=== PATIENT | male | born 1945 | race Caucasian/White ===

== ENCOUNTER 2017-07-24 06:25 | Day surgery (SDC) | payer MEDICARE, BC, OTHER ==
[~2017-07-24] VITALS: Ht 177.8 cm; Wt 97.6 kg
[2017-07-24] MEDS ORDERED: WARF1TAB47 PO (07:10)
[2017-07-24] MEDS ORDERED: LEVO137T26 PO (07:11)
[2017-07-24] MEDS ORDERED: INSU300I SQ (07:11)
[2017-07-24] MEDS ORDERED: LIRA0.6P SQ (07:12)
[2017-07-24] MEDS ORDERED: NOVO3I SC (07:13)
[2017-07-24] MEDS ORDERED: LIOT5TAB3 PO (07:14)
[2017-07-24] MEDS ORDERED: CARV12.579 PO (07:14)
[2017-07-24] MEDS ORDERED: HYDR-3671 PO (07:15)
[2017-07-24] MEDS ORDERED: PITA1TAB PO (07:15)
[2017-07-24] MEDS ORDERED: CALC0.5C4 PO (07:16)
[2017-07-24] MEDS ORDERED: ESCI20TA PO (07:17)
[2017-07-24] MEDS ORDERED: SEVE800T7 PO (07:17)
[2017-07-24] MEDS ORDERED: FEBU40TA PO (07:17)
[2017-07-24 07:18] VITALS: Ht 177.8 cm; Wt 97.6 kg
[2017-07-24 07:19] VITALS: BP 137/65; PULSE 61; RESP 18
[2017-07-24] MEDS ORDERED: TIMO5DRO21 RIGHT EYE (07:19)
[2017-07-24] MEDS ORDERED: FURO80TA3 PO (07:19)
[2017-07-24] MEDS ORDERED: BIMA2.5D RIGHT EYE (07:19)
[2017-07-24] MEDS ORDERED: FOLI1CAP PO (07:20)
[2017-07-24] MEDS ORDERED: CHOL100062 PO (07:20)
[2017-07-24] MEDS ORDERED: LINA145C PO (07:21)
[2017-07-24] MEDS ORDERED: PANT40TA3 PO (07:21)
[2017-07-24] MEDS ORDERED: NPH SQ (07:23)
[2017-07-24 07:38] LABS: BASOPHIL # 0.1 10^3/ul (0.0-0.1); BASOPHILS % 1.2 % (0.0-2.0); EOSINOPHILS % 0.5 % (0.0-7.0); HEMATOCRIT 36.4 % (42.0-52.0); HEMOGLOBIN 11.9 g/dl (14.0-18.0); LYMPHOCYTES # 1.4 10^3/ul (0.8-2.9); LYMPHOCYTES % 17.5 % (15.0-51.0); MEAN CORPUSCULAR HEMOGLOBIN 30.4 pg (29.0-33.0); MEAN CORPUSCULAR HGB CONC 32.7 g/dl (32.0-37.0); MEAN CORPUSCULAR VOLUME 92.9 fl (82.0-101.0); MEAN PLATELET VOLUME 10.7 fl (7.4-10.4); MONOCYTE # 0.9 10^3/ul (0.3-0.9); MONOCYTES % 12.1 % (0.0-11.0); NEUTROPHIL # 5.2 10^3/ul (1.6-7.5); NEUTROPHILS % 66.3 % (39.0-77.0); PLATELET COUNT 109 10^3/UL (140-415); RED BLOOD COUNT 3.92 10^6/ul (4.70-6.10); RED CELL DISTRIBUTION WIDTH 13.9 % (11.5-14.5); WHITE BLOOD COUNT 7.8 10^3/ul (4.8-10.8)
[2017-07-24 07:39] LABS: INR 2.51; PROTIME 27.4 Sec (12.2-14.2); PT RATIO 2.1
[2017-07-24 07:42] LABS: ALBUMIN 3.8 g/dl (3.3-4.9); ALBUMIN/GLOBULIN RATIO 1.65; BILIRUBIN,INDIRECT 0.1 mg/dl (0-1.1); BILIRUBIN,TOTAL 0.1 mg/dl (0.2-1.3); TOTAL PROTEIN 6.1 g/dl (6.1-8.1)
[2017-07-24 07:43] LABS: CALCIUM 8.6 mg/dl (8.4-10.2); CREATININE 5.97 mg/dl (0.61-1.24); POTASSIUM 3.6 mmol/L (3.5-5.1)
[2017-07-24 07:57] LABS: PARTIAL THROMBOPLASTIN TIME 43.9 Sec (25.0-35.0)
--- NOTE | 2017-07-24 14:13 | RADRPT ---
Vent Rate: 53 bpm RR Interval: 0 msec MN Interval: 212 msec QRS Duration: 176 msec QT Interval: 564 msec QTC Interval: 529 msec P-R-T [place]: 90 - 64 - 64 degrees Sinus bradycardia with sinus arrhythmia with 1st degree AV block with occasional premature ventricular complexes Right bundle branch block Possible Inferior infarct , age undetermined Cannot rule out Anterior infarct , age undetermined Abnormal ECG Electronically Signed By: Javad Blankenship [id number]
== END 2017-07-24 08:35 | disposition home or self-care (01) ==
LOC: SDS 06:25
PROVIDERS: ATTEND Internal Medicine Cardiovascular Disease
DX: I48.92 Unspecified atrial flutter (principal); Z53.9 Procedure and treatment not carried out, unspecified reason
CPT/HCPCS: 80053; 82962; 85025; 85610; 85730; 93005